=== PATIENT | female | born 1945 | race Hispanic/Latino ===

== ENCOUNTER → 2025-06-10 | Outpatient (REF) | payer MEDICARE ==
[~2025-06-10] MED LIST: IOPAMIDOL 370 MG/ML 100 ML INFUS..BTL INJ ONE; SODIUM CHLORIDE 0.9% 250ML 250 ML ONE
[2025-06-10 10:48] LABS: EST GLOMERULAR FILTRATION RATE 33.0 ML/MIN (>=60)
== END ==
LOC: CT 09:43
PROVIDERS: ATTEND Internal Medicine Cardiovascular Disease
DX: R06.02 Shortness of breath (principal); I65.29 Occlusion and stenosis of unspecified carotid artery; R09.89 Other specified symptoms and signs involving the circulatory and respiratory systems
CPT/HCPCS: 36415; 70496; 70498; 82565; 84520; 96360; J7050; Q9967